=== PATIENT | female | born 1950 | race Caucasian/White ===

== ENCOUNTER 2016-10-23 07:49 | Emergency (ER) | payer MEDICARE, OTHER ==
--- NOTE | 2016-10-23 07:59 | UC ---
Skin Complaint HPI - HPI Summary HPI Summary: cut her left index finger this am with a knife accidentally while cutting frozen bread. Last dT unknown. - History of Current Complaint Time Seen by Provider: 10/23/16 07:52 Stated Complaint: LEFT INDEX FINGER LACERATION Hx Obtained From: Patient Hx Last Menstrual Period: N/A Onset/Duration: Sudden Onset, Lasting Hours, Still Present Skin Exposure Onset/Duration: Hours Ago - 1 Timing: Constant Onset Severity: Moderate Current Severity: Moderate Pain Intensity: 5 Pain Scale Used: 0-10 Numeric Location: Hand (Left) - index finger Character: Painful Aggravating: Touch Alleviating: Nothing Associated Signs & Symptoms: Positive: Tenderness. Negative: Red Streaks, Joint Swelling Related History: Trauma - cut with knife - Allergy/Home Medications Allergies/Adverse Reactions: Allergies Allergy/AdvReac Type Severity Reaction Status Date / Time Penicillins Allergy Hives Verified 10/23/16 07:56 Home Medications: Home Medications Multiple Vitamins W/ Minerals [Multivitamin Women 50+] 1 tab PO DAILY 10/23/16 [ History Confirmed 10/23/16] Saccharomyces Boulardii [Probiotic] 250 mg PO DAILY 10/23/16 [History Confirmed 10/23/16] Vitamin B Complex TAB* [Complex B-100*] 1 tab PO DAILY 10/23/16 [History Confirmed 10/23/16] Review of Systems Constitutional: Negative Skin: Other - lac left index finger Eyes: Negative ENT: Negative Respiratory: Negative Cardiovascular: Negative Gastrointestinal: Negative Genitourinary: Negative Motor: Negative Neurovascular: Negative Musculoskeletal: Negative Neurological: Negative Psychological: Negative All Other Systems Reviewed And Are Negative: Yes PMH/Surg Hx/FS Hx/Imm Hx Previously Healthy: Yes - Surgical History Surgical History: None - Family History Known Family History: Positive: Other - muscular dystrophy in grandson - Social History Occupation: Retired Alcohol Use: None Substance Use Type: None Physical Exam Triage Information Reviewed: Yes Appearance: Well-Appearing, Well-Nourished, Pain Distress Vital Signs Reviewed: Yes Eyes: Positive: Conjunctiva Clear ENT: Positive: Normal ENT inspection Neck: Positive: Supple Respiratory: Positive: No respiratory distress Cardiovascular: Positive: RRR, Pulses Normal, Brisk Capillary Refill Musculoskeletal: Positive: Strength Intact, ROM Intact Neurological: Positive: Alert, Muscle Tone Normal Psychological Exam: Normal Skin: Positive: Other - 3cm curvilinear flap laceration to left index finger at PIP joint dorsal surface Laceration Repair - Laceration Repair 1 Description: Linear Laceration Size After Repair: Length (cm) - 3, Width (mm) - 2, Depth (mm) - 2 Modified For Repair: No Type Injection: Digital Anesthesia Used: 2.0% Lido Cleansing Completed Via Routine Prep: Yes Irrigation With Pressure Irrigation Device: Yes Closure Material: Sutures Closure Method: Single Layer Suture Of: Skin Suture Type: Nylon - 5 Course/Dx - Differential Diagnoses - Skin Complaint Differential Diagnoses: Other - laceration - Diagnoses Provider Diagnoses: finger laceration with sutures. tetanus, diphtheria update Discharge - Discharge Plan Condition: Stable Disposition: HOME Patient Education Materials: Care For Your Stitches (ED), Laceration (ED) Referrals: Caprice Viramontes MD [Primary Care Provider] - Additional Instructions: Change the dressing in 24 hrs. Use the splint for two days. Watch for infection. Keep the finger dry, but you may wash with soap and water if you pat it dry well after washing. Do not use peroxide or harsh cleaning agents. Use just soap and water. Keep the wound covered at all times. Use antibiotic ointment for at least the first two days sparingly. Have the sutures removed in 7-10 days. Return to urgent care, or see Dr. Viramontes, immediately if any sign of infection or new or worsening symptoms.
[2016-10-23] MEDS ORDERED: Tetan/Diph/Pertus SYR(Tdap)* 0.5 ML SYR(BOOSTRIX) use SYR IM ONE (08:04)
[2016-10-23] MEDS ORDERED: Lidocaine 2% PF * 5 ML VIAL ONE (08:11)
[2016-10-23 09:00] VITALS: BP 128/82
== END 2016-10-23 08:58 | disposition home or self-care (01) ==
LOC: UCCORT 07:49
DX: S61.211A Laceration without foreign body of left index finger without damage to nail, initial encounter (principal); W26.0XXA Contact with knife, initial encounter; Y93.G1 Activity, food preparation and clean up; Y92.9 Unspecified place or not applicable; Z88.0 Allergy status to penicillin
CPT/HCPCS: 12001; 90715; 96372; 99212; G0463

== ENCOUNTER 2016-11-01 07:01 | Emergency (ER) | payer MEDICARE, OTHER ==
[2016-11-01 07:10] VITALS: BP 125/77
--- NOTE | 2016-11-01 07:27 | UC ---
HPI Wound/Suture Re-check - HPI Summary HPI Summary: 65 yo female here for suture removal sutured left index finger 10/23 no complaints - History Of Current Complaint Chief Complaint: UCLaceration Stated Complaint: STITCHES REMOVED Time Seen by Provider: 11/01/16 07:11 Hx Obtained From: Patient Onset/Duration: Sudden Onset Severity: Mild Pain Intensity: 0 Pain Scale Used: 0-10 Numeric - Allergies/Home Medications Allergies/Adverse Reactions: Allergies Allergy/AdvReac Type Severity Reaction Status Date / Time Penicillins Allergy Hives Verified 10/23/16 07:56 PMH/Surg Hx/FS Hx/Imm Hx Previously Healthy: Yes - Surgical History Surgical History: None - Family History Known Family History: Positive: Other - muscular dystrophy in grandson - Social History Alcohol Use: None Substance Use Type: None Smoking Status (MU): Never Smoked Tobacco - Immunization History Most Recent Tetanus Shot: greater than 10 years ago Review of Systems Constitutional: Negative Skin: Negative Eyes: Negative ENT: Negative Respiratory: Negative Cardiovascular: Negative Gastrointestinal: Negative Genitourinary: Negative Motor: Negative Neurovascular: Negative Musculoskeletal: Negative Neurological: Negative Psychological: Negative All Other Systems Reviewed And Are Negative: Yes Physical Exam Triage Information Reviewed: Yes Appearance: Well-Appearing, No Pain Distress, Well-Nourished Vital Signs: Initial Vital Signs Temp 97.4 F 11/01/16 07:05 Pulse 96 11/01/16 07:05 Resp 16 11/01/16 07:05 BP 125/77 11/01/16 07:05 Pulse Ox 98 11/01/16 07:05 Eyes: Positive: Conjunctiva Clear ENT: Negative: Nasal congestion, Nasal drainage, Trismus, Muffled/hoarse voice Neck: Positive: Nontender, No Lymphadenopathy Respiratory: Positive: No respiratory distress, No accessory muscle use Musculoskeletal: Positive: ROM Intact, No Edema Neurological: Positive: Alert Psychological Exam: Normal Skin Exam: Normal Course/Dx - Course Course Of Treatment: sutures removed. steri strips applied. slight swelling. no erythema. no d/c - Differential Dx - Laceration/Wound Provider Diagnoses: suture removal left index finger Discharge - Discharge Plan Condition: Stable Disposition: HOME Patient Education Materials: Stitches Removal (ED) Referrals: Caprice Viramontes MD [Primary Care Provider] - Additional Instructions: call for any questions return for any problems you may return steri strips if they are still on after one week
== END 2016-11-01 07:25 | disposition home or self-care (01) ==
LOC: UCCORT 07:01
DX: Z48.02 Encounter for removal of sutures (principal); Z88.0 Allergy status to penicillin

== ENCOUNTER 2019-05-04 14:57 | Emergency (ER) | payer MEDICARE, MEDICAID ==
[2019-05-04 15:21] VITALS: BP 147/82
--- NOTE | 2019-05-04 15:32 | UC ---
Skin Complaint HPI - HPI Summary HPI Summary: Pt presents with c/o insect bite to left upper medial chest that is erythematous , pruritic and slightly swollen. Pt states she was bit or stung by an insect two days ago. Pt has not taken any antihistamine. - History of Current Complaint Chief Complaint: UCSkin Time Seen by Provider: 05/04/19 15:25 Stated Complaint: SKIN CONCERN Hx Obtained From: Patient Hx Last Menstrual Period: N/A ?: No Onset/Duration: Gradual Onset, Lasting Days, Still Present Skin Exposure Onset/Duration: Days Ago Timing: Constant Onset Severity: Mild Current Severity: Mild Pain Intensity: 2 Location: Discrete - left upper medial chest Character: Pruritus, Hives, Redness, Raised Aggravating Factor(s): Touch Alleviating Factor(s): Nothing Associated Signs & Symptoms: Positive: Rash Related History: Insect Bite/Sting - Allergy/Home Medications Allergies/Adverse Reactions: Allergies Allergy/AdvReac Type Severity Reaction Status Date / Time Penicillins Allergy Hives Verified 05/04/19 15:05 Home Medications: Home Medications Cholecalciferol (Vitamin D3) [Vitamin D3] 1 ml PO DAILY 05/04/19 [History Confirmed 05/04/19] Cyanocobalamin (Vitamin B-12) [Vitamin B-12] 1,000 mcg PO DAILY 05/04/19 [ History Confirmed 05/04/19] Multivitamin [Multivitamins] 1 cap PO DAILY 05/04/19 [History Confirmed 05/04/19 ] PMH/Surg Hx/FS Hx/Imm Hx Previously Healthy: Yes - Surgical History Surgical History: None - Family History Known Family History: Positive: Other - muscular dystrophy in grandson - Social History Occupation: Retired Lives: With Family Alcohol Use: Occasionally Substance Use Type: None Smoking Status (MU): Current Some Day Smoker Have You Smoked in the Last Year: Yes - Immunization History Most Recent Tetanus Shot: 10/23/16 Vaccination Up to Date: Yes Review of Systems All Other Systems Reviewed And Are Negative: Yes Constitutional: Positive: Negative Skin: Positive: Rash Eyes: Positive: Negative ENT: Positive: Negative Respiratory: Positive: Negative Cardiovascular: Positive: Negative Gastrointestinal: Positive: Negative Genitourinary: Positive: Negative Motor: Positive: Negative Neurovascular: Positive: Negative Musculoskeletal: Positive: Negative Neurological: Positive: Negative Psychological: Positive: Negative Is Patient Immunocompromised?: No Physical Exam Triage Information Reviewed: Yes Appearance: Well-Appearing Vital Signs: Initial Vital Signs Temp 99.2 F 05/04/19 15:09 Pulse 97 05/04/19 15:09 Resp 18 05/04/19 15:09 BP 147/82 05/04/19 15:09 Pulse Ox 97 05/04/19 15:09 Vital Signs Reviewed: Yes Eye Exam: Normal ENT Exam: Normal ENT: Positive: Hearing grossly normal Neck exam: Normal Neck: Positive: Supple, No Lymphadenopathy Respiratory Exam: Normal Respiratory: Positive: No respiratory distress Musculoskeletal Exam: Normal Neurological Exam: Normal Psychological Exam: Normal Skin Exam: Other - warm to touch. large erytheajtous, urticaria left upper anterior chest wall. Course/Dx - Differential Diagnoses - Skin Complaint Differential Diagnoses: Cellulitis, Urticaria - Diagnoses Provider Diagnosis: Insect bite, Urticaria Discharge ED - Sign-Out/Discharge Documenting (check all that apply): Patient Departure All imaging exams completed and their final reports reviewed: No Studies - Discharge Plan Condition: Stable Disposition: HOME Prescriptions: Cetirizine* [ZyrTEC 10 MG TAB*] 10 mg PO DAILY #10 tab predniSONE TAB* [Deltasone 10 MG TAB*] 30 mg PO DAILY #12 tab Patient Education Materials: Insect Bite or Sting (ED) Referrals: Caprice Viramontes MD [Primary Care Provider] - If Needed - Billing Disposition and Condition Condition: STABLE Disposition: Home - Attestation Statements Provider Attestation: Per institutional requirements, I have reviewed the chart, however, I was not consulted specifically or made aware of this patient by the midlevel provider. I did not personally evaluate, interact with , or disposition this patient.
== END 2019-05-04 15:41 | disposition home or self-care (01) ==
LOC: UCCORT 14:57
DX: S20.362A Insect bite (nonvenomous) of left front wall of thorax, initial encounter (principal); W57.XXXA Bitten or stung by nonvenomous insect and other nonvenomous arthropods, initial encounter; Y92.9 Unspecified place or not applicable; L50.9 Urticaria, unspecified; F17.200 Nicotine dependence, unspecified, uncomplicated
CPT/HCPCS: 99212; G0463

== ENCOUNTER 2019-05-10 09:27 | Emergency (ER) | payer MEDICARE, MEDICAID ==
[2019-05-10 10:41] VITALS: BP 130/76
--- NOTE | 2019-05-10 11:01 | UC ---
Skin Complaint HPI - HPI Summary HPI Summary: 68 yo woman with a history of insect bite, with increasing redness provoking visit last week. Treated with prednisone without significant change--remained itchy but not particularly tender. Has one area that feels like there is a sliver in it. No recall of bite. Returns today with increasing redness. - History of Current Complaint Chief Complaint: UCSkin Time Seen by Provider: 05/10/19 10:58 Stated Complaint: RE-CK SKIN COMPLAINT Hx Obtained From: Patient Hx Last Menstrual Period: N/A Onset/Duration: Gradual Onset, Lasting Days Skin Exposure Onset/Duration: Days Ago - 7 to 8 days ago Timing: Constant Onset Severity: Mild Current Severity: Moderate Pain Intensity: 0 Location: Discrete - expanding rash to left side of neck, anterior chest and shoulder. Aggravating Factor(s): Nothing Alleviating Factor(s): Nothing - no response to oral steroid Associated Signs & Symptoms: Positive: Negative Related History: Insect Bite/Sting - Allergy/Home Medications Allergies/Adverse Reactions: Allergies Allergy/AdvReac Type Severity Reaction Status Date / Time Penicillins Allergy Hives Verified 05/10/19 10:36 PMH/Surg Hx/FS Hx/Imm Hx Previously Healthy: Yes - Surgical History Surgical History: None - Family History Known Family History: Positive: Other - muscular dystrophy in grandson - Social History Occupation: Employed Full-time - caregiver for elderly parents Alcohol Use: Occasionally Substance Use Type: None Smoking Status (MU): Former Smoker Have You Smoked in the Last Year: Yes - Immunization History Most Recent Tetanus Shot: 10/23/16 Vaccination Up to Date: Yes Review of Systems All Other Systems Reviewed And Are Negative: Yes Constitutional: Positive: Negative - feels well, no fever or systemic illness. Skin: Positive: Other - expanding rash Eyes: Positive: Negative ENT: Positive: Negative Gastrointestinal: Positive: Negative Genitourinary: Positive: Negative Motor: Positive: Negative - no joint aches, no fever. Neurovascular: Positive: Negative Musculoskeletal: Positive: Negative Neurological: Positive: Negative Psychological: Positive: Negative Physical Exam Triage Information Reviewed: Yes Appearance: Well-Appearing, No Pain Distress Vital Signs: Initial Vital Signs Temp 98.7 F 05/10/19 10:37 Pulse 94 05/10/19 10:37 Resp 16 05/10/19 10:37 BP 130/76 09/11/19 10:37 Pulse Ox 97 05/10/19 10:37 Eye Exam: Normal ENT: Positive: Pharynx normal Neck: Positive: Supple, Nontender, No Lymphadenopathy Respiratory: Positive: Lungs clear, Normal breath sounds Cardiovascular: Positive: RRR, No Murmur Musculoskeletal Exam: Normal Neurological Exam: Normal Neurological: Positive: Alert, Muscle Tone Normal Psychological Exam: Normal Skin Exam: Other - 27 x 22 cm area of erythema, mildly warm, with well defined border, confluent erythema over left lower neck, sternal, shoulder area. Course/Dx - Course Course Of Treatment: doxycylcine for suspected EM rash. Expansile rash, atypical appearance for cellulitis, expanding after an unidentified bite. Had a small area of entry point with crust seen and flicked off. She has no systemic illness and feels well. - Differential Diagnoses - Skin Complaint Differential Diagnoses: Allergic Reaction, Cellulitis, Contact Dermatitis, Other - erythema migrans - Diagnoses Provider Diagnosis: Erythema migrans (Lyme disease) Discharge ED - Sign-Out/Discharge Documenting (check all that apply): Patient Departure All imaging exams completed and their final reports reviewed: No Studies - Discharge Plan Condition: Stable Disposition: HOME Prescriptions: DOXYcycline CAP(*) [DOXYcycline 100MG CAP(*)] 100 mg PO BID #28 cap Patient Education Materials: Lyme Disease (ED) Referrals: Caprice Viramontes MD [Primary Care Provider] - Additional Instructions: As we discussed, the expanding rash is consistent with the erythema migrans rash of early Lyme disease. Lab testing is generally not helpful at this early stage. Anticipate some enlargement and mild tenderness int he first 24 hours of treatment, followed by a gradual clearing of the redness. If you develop a fever or joint pain, please seek further testing and follow up. - Billing Disposition and Condition Condition: STABLE Disposition: Home
== END 2019-05-10 11:40 | disposition home or self-care (01) ==
LOC: UCCORT 09:27
DX: A69.20 Lyme disease, unspecified (principal); Z88.0 Allergy status to penicillin; Z87.891 Personal history of nicotine dependence
CPT/HCPCS: 99212; G0463